=== PATIENT | male | born 1960 | race Caucasian/White ===

== ENCOUNTER 2016-07-06 08:48 | Outpatient (CLI) | payer BC | END 2016-07-06 08:49 | disposition home or self-care (01) | DX: E11.9 Type 2 diabetes mellitus without complications (principal); Z79.899 Other long term (current) drug therapy; E78.2 Mixed hyperlipidemia ==

== ENCOUNTER 2016-11-03 08:03 | Outpatient (CLI) | payer BC ==
[2016-11-03 12:05] LABS: GLUCOSE 213 mg/dL (70-100); LDL CHOLESTEROL,DIRECT 53 mg/dL
== END 2016-11-03 08:04 | disposition home or self-care (01) ==
LOC: LAB.F 08:03
PROVIDERS: ATTEND Internal Medicine
DX: E78.2 Mixed hyperlipidemia (principal); E11.9 Type 2 diabetes mellitus without complications; Z79.899 Other long term (current) drug therapy
CPT/HCPCS: 36415; 82947; 83036; 84450; 84460

== ENCOUNTER 2017-04-05 12:20 | Outpatient (CLI) | payer BC | END 2017-04-05 12:21 | disposition home or self-care (01) | LOC: LAB 12:20 | PROVIDERS: ATTEND Physician Assistant | DX: L40.0 Psoriasis vulgaris (principal); L57.8 Other skin changes due to chronic exposure to nonionizing radiation; L82.1 Other seborrheic keratosis; D18.01 Hemangioma of skin and subcutaneous tissue | CPT/HCPCS: 36415; 81599 ==

== ENCOUNTER 2017-07-06 07:51 | Outpatient (CLI) | payer BC ==
[2017-07-06 11:14] LABS: ALT ALANINE AMINOTRANSFERASE 33 IU/L (10-60); AST ASPARTATE AMINOTRANSFERASE 27 IU/L (10-42); LDL CHOLESTEROL,DIRECT 47 mg/dL
[2017-07-06 11:21] LABS: HB2 TOTAL 14.8 g/dL; HEMOGLOBIN A1C 1.08 g/dL; HEMOGLOBIN A1C % 8.8 % (4.6-6.2)
== END 2017-07-06 07:52 | disposition home or self-care (01) ==
LOC: LAB.F 07:51
PROVIDERS: ATTEND Internal Medicine
DX: E78.5 Hyperlipidemia, unspecified (principal); E11.9 Type 2 diabetes mellitus without complications
CPT/HCPCS: 36415; 83036; 83721; 84450; 84460

== ENCOUNTER 2017-10-24 14:24 | Outpatient (CLI) | payer BC ==
[2017-10-24 18:37] LABS: HB2 TOTAL 14.6 g/dL; HEMOGLOBIN A1C 0.75 g/dL; HEMOGLOBIN A1C % 6.9 % (4.6-6.2)
== END 2017-10-24 14:25 | disposition home or self-care (01) ==
LOC: LAB.F 14:24
PROVIDERS: ATTEND Internal Medicine
DX: E11.9 Type 2 diabetes mellitus without complications (principal)
CPT/HCPCS: 36415; 83036

== ENCOUNTER 2018-01-18 09:00 | Outpatient (CLI) | payer BC ==
[2018-01-18 17:33] LABS: BASOPHILS % (AUTO) 0.8 %; EOSINOPHILS # (AUTO) 0.2 10^3/uL (0.0-0.7); EOSINOPHILS % (AUTO) 3.5 %; HGB - HEMOGLOBIN 13.9 g/dL (14.0-18.0); LYMPHOCYTES # (AUTO) 1.6 10^3/uL (1.5-3.5); MEAN CORPUSCULAR HGB CONC 34.3 g/dL (32.0-36.0); MEAN CORPUSCULAR VOLUME 90.5 fL (80.0-94.0); MEAN PLATELET VOLUME 9.3 fL (7.4-11.4); MONOCYTES # (AUTO) 0.5 10^3/uL (0.0-1.0); NEUTROPHILS # (AUTO) 3.7 10^3/uL (1.5-6.6); NEUTROPHILS % (AUTO) 61.7 %; PLT - PLATELET COUNT 201 10^3/uL (130-450); RED BLOOD COUNT 4.47 10^6/uL (4.70-6.10); RED CELL DISTRIBUTION WIDTH 12.4 % (12.0-15.0)
[2018-01-18 18:03] LABS: HB2 TOTAL 14.9 g/dL; HEMOGLOBIN A1C 0.87 g/dL; HEMOGLOBIN A1C % 7.5 % (4.6-6.2)
[2018-01-18 18:10] LABS: ALBUMIN 4.6 g/dL (3.2-5.5); ALBUMIN/GLOBULIN RATIO 1.5 (1.0-2.2); ALKALINE PHOSPHATASE 37 IU/L (42-121); ALT ALANINE AMINOTRANSFERASE 32 IU/L (10-60); AST ASPARTATE AMINOTRANSFERASE 29 IU/L (10-42); BILIRUBIN,TOTAL 0.5 mg/dL (0.2-1.0); BUN - BLOOD UREA NITROGEN 26 mg/dL (6-20); CALCIUM 9.5 mg/dL (8.5-10.3); CARBON DIOXIDE - CO2 27 mmol/L (21-32); CHLORIDE 104 mmol/L (101-111); CHOL/HDL RATIO 3.3 (<5.0); CHOLESTEROL 101 mg/dL; CREATININE 1.2 mg/dL (0.6-1.2); GFR - MDRD 62 (>89); GLUCOSE 139 mg/dL (70-100); HDL CHOLESTEROL 31 mg/dL; LDL CHOLESTEROL,CALCULATED 39 mg/dL; LDL/HDL RATIO 1.3 (<3.6); SODIUM 136 mmol/L (135-145); TOTAL PROTEIN 7.6 g/dL (6.7-8.2); VLDL CHOLESTEROL 31 mg/dL
== END 2018-01-18 09:01 | disposition home or self-care (01) ==
LOC: LAB.F 09:00
PROVIDERS: ATTEND Internal Medicine
DX: Z00.00 Encounter for general adult medical examination without abnormal findings (principal); E78.5 Hyperlipidemia, unspecified; I10 Essential (primary) hypertension; E11.9 Type 2 diabetes mellitus without complications
CPT/HCPCS: 36415; 80053; 80061; 83036; 83721; 84153; 85025

== ENCOUNTER 2018-05-16 09:43 | Outpatient (CLI) | payer BC ==
[2018-05-16 10:09] LABS: BASOPHILS # (AUTO) 0.1 10^3/uL (0.0-0.1); BASOPHILS % (AUTO) 1.1 %; EOSINOPHILS # (AUTO) 0.2 10^3/uL (0.0-0.7); EOSINOPHILS % (AUTO) 2.9 %; HGB - HEMOGLOBIN 14.4 g/dL (14.0-18.0); LYMPHOCYTES # (AUTO) 1.6 10^3/uL (1.5-3.5); LYMPHOCYTES % (AUTO) 23.6 %; MEAN CORPUSCULAR HEMOGLOBIN 30.7 pg (27.0-31.0); MEAN CORPUSCULAR HGB CONC 34.5 g/dL (32.0-36.0); MEAN CORPUSCULAR VOLUME 88.9 fL (80.0-94.0); MEAN PLATELET VOLUME 8.9 fL (7.4-11.4); MONOCYTES # (AUTO) 0.6 10^3/uL (0.0-1.0); NEUTROPHILS # (AUTO) 4.5 10^3/uL (1.5-6.6); NEUTROPHILS % (AUTO) 64.4 %; PLT - PLATELET COUNT 207 10^3/uL (130-450); RED BLOOD COUNT 4.69 10^6/uL (4.70-6.10); RED CELL DISTRIBUTION WIDTH 12.5 % (12.0-15.0); WHITE BLOOD COUNT 6.9 x10^3/uL (4.8-10.8)
[2018-05-16 10:14] LABS: ALBUMIN 4.5 g/dL (3.2-5.5); ALBUMIN/GLOBULIN RATIO 1.5 (1.0-2.2); BILIRUBIN,TOTAL 0.5 mg/dL (0.2-1.0); CALCIUM 9.7 mg/dL (8.5-10.3); CREATININE 1.1 mg/dL (0.6-1.2); TOTAL PROTEIN 7.5 g/dL (6.7-8.2)
== END 2018-05-16 09:44 | disposition home or self-care (01) ==
LOC: LAB 09:43
PROVIDERS: ATTEND Physician Assistant
DX: L40.0 Psoriasis vulgaris (principal)
CPT/HCPCS: 36415; 80053; 81599; 85025

== ENCOUNTER 2018-05-27 08:38 | Outpatient (CLI) | payer BC ==
[2018-05-27 13:36] LABS: HB2 TOTAL 15.7 g/dL; HEMOGLOBIN A1C 1.09 g/dL; HEMOGLOBIN A1C % 8.5 % (4.6-6.2)
== END 2018-05-27 08:39 | disposition home or self-care (01) ==
LOC: LAB.F 08:38
PROVIDERS: ATTEND Internal Medicine
DX: E11.9 Type 2 diabetes mellitus without complications (principal)
CPT/HCPCS: 36415; 83036

== ENCOUNTER 2018-11-18 11:45 | Outpatient (CLI) | payer BC ==
--- NOTE | 2018-11-18 17:36 | MRI Report ---
Reason: BURSITIS OF LEFT SHOULDER Procedure Date: 11/18/2018 Accession Number: [id number] / [id number] Procedure: MRI - Shoulder LT W/O CPT Code: FULL RESULT: EXAM: LEFT SHOULDER MRI WITHOUT CONTRAST. EXAM DATE: 11/18/2018 12:30 PM. CLINICAL HISTORY: Bursitis of left shoulder. Shoulder pain. COMPARISON: None. TECHNIQUE: Multiplanar, multisequence T1-weighted and fluid-sensitive sequences of the shoulder without contrast. Other: None. FINDINGS: Acromioclavicular Region: The acromion is type II. AC joint is moderately osteoarthritic. The coracoacromial and coracoclavicular ligaments are intact. Some fluid seen in the bursa. Glenohumeral Region: No subluxation. No effusion or loose bodies. The articular cartilage is unremarkable. The glenohumeral ligaments and joint capsule are unremarkable. Bone Marrow: No fracture, marrow edema or bone lesions. Labrum: Small sublabral hole is present. No tears are noted. Musculature/Rotator Cuff: Subscapularis, supraspinatus and infraspinatus portions of the cuff are thickened and show some increased T2 signal. Also noted is a focal full-thickness tear of the distal supraspinatus attachment measuring about 1 cm. Series 701 image 4, series 501 image 14. No edema or fatty atrophy. Biceps Tendon: The long head of the biceps tendon and biceps dylon are intact. Other: The subcutaneous tissues are unremarkable. IMPRESSION: 1. AC joint is moderately osteoarthritic. Some fluid seen in the bursa is present. Type II unipartite undersurface osseous acromion. 2. Small cell labral hole. No tears are seen. 3. Significant tendinitis at the supraspinatus, infraspinatus and subscapularis portions of the cuff, there is a focal 1 cm rotator cuff tear distal supraspinatus as well. 4. Long head of biceps, biceps labral attachment have a normal appearance. RADIA
== END 2018-11-18 11:46 | disposition home or self-care (01) ==
LOC: DI 11:45
PROVIDERS: ATTEND Orthopaedic Surgery Sports Medicine
DX: M75.52 Bursitis of left shoulder (principal); M19.012 Primary osteoarthritis, left shoulder; M75.82 Other shoulder lesions, left shoulder

== ENCOUNTER 2018-11-29 08:07 | Outpatient (CLI) | payer BC ==
[2018-11-29 13:28] LABS: HB2 TOTAL 15.3 g/dL; HEMOGLOBIN A1C 1.01 g/dL; HEMOGLOBIN A1C % 8.2 % (4.6-6.2)
[2018-11-29 16:26] LABS: CALCIUM 9.9 mg/dL (8.5-10.3); CREATININE 1.2 mg/dL (0.6-1.2)
== END 2018-11-29 08:08 | disposition home or self-care (01) ==
LOC: LAB.S 08:07
PROVIDERS: ATTEND Family Medicine
DX: E11.9 Type 2 diabetes mellitus without complications (principal)
CPT/HCPCS: 36415; 80048; 83036

== ENCOUNTER 2019-01-02 11:32 | Outpatient (CLI) | payer BC ==
[2019-01-02 11:51] LABS: BASOPHILS % (AUTO) 0.4 %; EOSINOPHILS # (AUTO) 0.2 10^3/uL (0.0-0.7); HGB - HEMOGLOBIN 13.8 g/dL (14.0-18.0); LYMPHOCYTES # (AUTO) 1.9 10^3/uL (1.5-3.5); LYMPHOCYTES % (AUTO) 26.7 %; MEAN CORPUSCULAR HEMOGLOBIN 30.5 pg (27.0-31.0); MEAN CORPUSCULAR HGB CONC 33.8 g/dL (32.0-36.0); MEAN CORPUSCULAR VOLUME 90.3 fL (80.0-94.0); MEAN PLATELET VOLUME 10.5 fL (7.4-11.4); MONOCYTES # (AUTO) 0.6 10^3/uL (0.0-1.0); MONOCYTES % (AUTO) 8.8 %; NEUTROPHILS # (AUTO) 4.2 10^3/uL (1.5-6.6); NEUTROPHILS % (AUTO) 60.4 %; PLT - PLATELET COUNT 203 10^3/uL (130-450); RED BLOOD COUNT 4.52 10^6/uL (4.70-6.10); WHITE BLOOD COUNT 6.9 x10^3/uL (4.8-10.8)
[2019-01-02 12:04] LABS: ALBUMIN 4.5 g/dL (3.2-5.5); ALBUMIN/GLOBULIN RATIO 1.5 (1.0-2.2); BILIRUBIN,TOTAL 0.5 mg/dL (0.2-1.0); CALCIUM 9.8 mg/dL (8.5-10.3); CREATININE 1.1 mg/dL (0.6-1.2); TOTAL PROTEIN 7.6 g/dL (6.7-8.2)
== END 2019-01-02 11:33 | disposition home or self-care (01) ==
LOC: LAB 11:32
PROVIDERS: ATTEND Orthopaedic Surgery Sports Medicine
DX: Z01.818 Encounter for other preprocedural examination (principal); M75.42 Impingement syndrome of left shoulder; M75.102 Unspecified rotator cuff tear or rupture of left shoulder, not specified as traumatic
CPT/HCPCS: 36415; 80053; 85025

== ENCOUNTER 2019-03-07 09:46 | Outpatient (CLI) | payer BC ==
[2019-03-07 19:28] LABS: CALCIUM 10.2 mg/dL (8.5-10.3); CREATININE 1.4 mg/dL (0.6-1.2)
[2019-03-07 19:29] LABS: HEMOGLOBIN A1C 1.19 g/dL
== END 2019-03-07 09:47 | disposition home or self-care (01) ==
LOC: LAB.S 09:46
PROVIDERS: ATTEND Family Medicine
DX: E11.65 Type 2 diabetes mellitus with hyperglycemia (principal)
CPT/HCPCS: 36415; 80048; 83036

== ENCOUNTER 2019-05-02 14:13 | Outpatient (CLI) | payer BC | END 2019-05-02 14:14 | disposition home or self-care (01) | LOC: LAB 14:13 | PROVIDERS: ATTEND Physician Assistant Medical | DX: L40.0 Psoriasis vulgaris (principal) | CPT/HCPCS: 36415; 81599; 86317; 86480 ==

== ENCOUNTER 2019-05-16 09:50 | Outpatient (CLI) | payer BC ==
[2019-05-16 17:51] LABS: CALCIUM 9.5 mg/dL (8.5-10.3); CREATININE 1.1 mg/dL (0.6-1.2)
[2019-05-16 17:56] LABS: HB2 TOTAL 13.6 g/dL; HEMOGLOBIN A1C 0.75 g/dL; HEMOGLOBIN A1C % 7.2 % (4.6-6.2)
== END 2019-05-16 09:51 | disposition home or self-care (01) ==
LOC: LAB.S 09:50
PROVIDERS: ATTEND Family Medicine
DX: E11.65 Type 2 diabetes mellitus with hyperglycemia (principal)
CPT/HCPCS: 36415; 80048; 83036

== ENCOUNTER 2019-05-24 14:46 | Outpatient (CLI) | payer BC ==
[2019-05-24 15:17] LABS: BASOPHILS % (AUTO) 0.5 %; EOSINOPHILS # (AUTO) 0.3 10^3/uL (0.0-0.7); EOSINOPHILS % (AUTO) 3.1 %; HGB - HEMOGLOBIN 13.5 g/dL (14.0-18.0); LYMPHOCYTES # (AUTO) 2.1 10^3/uL (1.5-3.5); LYMPHOCYTES % (AUTO) 26.8 %; MEAN CORPUSCULAR HEMOGLOBIN 30.1 pg (27.0-31.0); MEAN CORPUSCULAR HGB CONC 33.6 g/dL (32.0-36.0); MEAN CORPUSCULAR VOLUME 89.7 fL (80.0-94.0); MEAN PLATELET VOLUME 10.7 fL (7.4-11.4); MONOCYTES # (AUTO) 0.6 10^3/uL (0.0-1.0); NEUTROPHILS # (AUTO) 4.9 10^3/uL (1.5-6.6); NEUTROPHILS % (AUTO) 61.1 %; PLT - PLATELET COUNT 213 10^3/uL (130-450); RED BLOOD COUNT 4.48 10^6/uL (4.70-6.10); RED CELL DISTRIBUTION WIDTH 12.2 % (12.0-15.0)
[2019-05-24 15:30] LABS: ALBUMIN 4.7 g/dL (3.2-5.5); ALBUMIN/GLOBULIN RATIO 1.6 (1.0-2.2); BILIRUBIN,TOTAL 0.8 mg/dL (0.2-1.0); CALCIUM 10.2 mg/dL (8.5-10.3); CREATININE 1.6 mg/dL (0.6-1.2); TOTAL PROTEIN 7.6 g/dL (6.7-8.2)
== END 2019-05-24 14:47 | disposition home or self-care (01) ==
LOC: LAB 14:46
PROVIDERS: ATTEND Orthopaedic Surgery Sports Medicine
DX: Z01.812 Encounter for preprocedural laboratory examination (principal); M75.42 Impingement syndrome of left shoulder; M75.52 Bursitis of left shoulder; M75.122 Complete rotator cuff tear or rupture of left shoulder, not specified as traumatic
CPT/HCPCS: 36415; 80053; 85025

== ENCOUNTER 2019-05-28 08:35 | Day surgery (SDC) | payer BC ==
[2019-05-28] MEDS ORDERED: PROPOFOL 200 MG/20 ML VIAL IVP ONE (08:36)
[2019-05-28] MEDS ORDERED: LIDOCAINE-MPF 2% 5 ML VIAL IM ONE (08:36)
[2019-05-28] MEDS ORDERED: fentaNYL 100 MCG/2 ML VIAL IVP ONE (08:36)
[2019-05-28] MEDS ORDERED: ROCURONIUM 50 MG/5 ML VIAL IVP ONE (08:36)
[2019-05-28] MEDS ORDERED: ACETAMINOPHEN 1,000 MG/100 ML 100 ML IV ONE (08:36)
[2019-05-28] MEDS ORDERED: MIDAZOLAM 2 MG/2 ML VIAL IVP ONE (08:36)
[2019-05-28] MEDS ORDERED: ONDANSETRON 4 MG/2 ML VIAL IVP ONE (08:36)
[2019-05-28] MEDS ORDERED: CEFAZOLIN SODIUM IN 0.9 % NACL 0 GM/0 ML BAG IV ONE (08:41)
[2019-05-28] MEDS ORDERED: LACTATED RINGERS 1,000 ML IV ONE (08:48)
--- NOTE | 2019-05-28 09:25 | ANESTHESIA ---
Pre-Anesthesia VS, & Labs - Diagnosis Left shoulder impingement and rotator cuff tear - Procedure Left shoulder arthroscopic subacromial decompression, rotator cuff repair Vital Signs: Temp Pulse Resp BP Pulse Ox 36.6 C 92 16 147/92 H 99 05/28/19 08:49 05/28/19 08:49 05/28/19 08:49 05/28/19 08:49 05/28/19 08:49 Height 5 ft 11 in Weight (kg) 112.6 kg - NPO >8 hours - Lab Results Current Lab Results: Laboratory Tests 05/28/19 09:07: POC Whole Bld Glucose 163 H Lab results reviewed: Yes Home Medications and Allergies Home Medications: Ambulatory Orders Insulin Lispro [Humalog Kwikpen U-100] 7 unit SUBQ TIDWM 05/23/19 Adalimumab [Humira] 40 mg SUBQ Q14D 07/19/16 Fenofibrate Nanocrystallized [Tricor] 145 mg PO DAILY 07/19/16 Metformin HCl 1,000 mg PO BIDWM 07/19/16 Multivitamin [Multivitamins] 1 each PO DAILY 07/19/16 lisinopriL [Lisinopril] 2.5 mg PO DAILY 07/19/16 Aspirin [Aspirin EC] 81 mg PO DAILY 01/02/19 C,E,Zinc,Copper 11/Rlpwi2m/Lut [Ocuvite Adult 50 Plus Softgel] 1 each PO DAILY 01/02/19 Cholecalciferol [Vitamin D3] 1,000 unit PO DAILY 01/02/19 Insulin Glargine,Hum.rec.anlog [Basaglar Kwikpen U-100] 50 unit SUBQ DAILY 01/02/19 Rosuvastatin Calcium 20 mg PO DAILY 01/02/19 Ubidecarenone [Co Q-10] 200 mg PO BID 01/02/19 Insulin Lispro [Humalog Kwikpen U-100] 7 unit SUBQ TIDWM 05/23/19 Allergies/Adverse Reactions: Allergies Allergy/AdvReac Type Severity Reaction Status Date / Time cephalexin monohydrate * Allergy Hives Verified 05/28/19 09:12 [From Keflex] Anes History & Medical History - Anesthetic History Anesthesia Complications: reports: No previous complications - Medical History Cardiovascular: reports: High cholesterol Pulmonary: reports: Sleep apnea (Resolved after UPP) Gastrointestinal: reports: None Urinary: reports: None Neuro: reports: None Musculoskeletal: reports: Osteoarthritis Endocrine/Autoimmune: reports: Type 2 diabetes, Other Skin: reports: Psoriasis (treated with humira) Smoking Status: Former smoker (quit 10 years ago) Psychosocial: reports: Cannabis (Every other day) - Surgical History General: Appendectomy, Other Eyes Ears Nose Throat (EENT): Tonsil/Adenoidectomy, Other (UPP) Exam General: Alert, Oriented x3, Cooperative, No acute distress Dental: WNL Mouth Openin Fingerbreadth Neck Mobility: Normal Mallampati classification: II Thyromental Distance: greater than 6 cm Respiratory: Lungs clear, Normal breath sounds, No respiratory distress, No accessory muscle use Cardiovascular: Regular rate, Normal S1, Normal S2, No murmurs Mental/Cognitive Status: Alert/Oriented X3, Normal for patient Plan Anesthesia Type: General, Interscalene Block (left) Regional Block: Per Surgeon's request for Post Op pain control Consent for Procedure(s) Verified and Reviewed: Yes Code Status: Attempt Resuscitation ASA classification: 2-Mild systemic disease Is this case an emergency?: No
[2019-05-28] MEDS ORDERED: EPINEPHrine 1 MG/ML AMP ONE (10:39)
[2019-05-28] MEDS ORDERED: BUPIVACAINE 0.5% PF 30 ML VIAL ONE (10:39)
[2019-05-28] MEDS ORDERED: CLINDAMYCIN 600 MG/50 ML 50 ML IV ONE (11:04)
[2019-05-28] MEDS ORDERED: CLINDAMYCIN 300 MG/2 ML VIAL IM SCH (11:10)
[2019-05-28] MEDS ORDERED: CLINDAMYCIN IV 900 MG/50 ML IV ONE (11:15)
[2019-05-28] MEDS ORDERED: BUPIVACAINE 0.5% PF 30 ML VIAL INFIL ONE (11:51)
--- NOTE | 2019-05-28 12:28 | ANESTHESIA PROCEDURE NOTE ---
Diagnosis: Left shoulder torn rotator cuff tear, impingement syndrome Procedure: Left interscalene block Consent for Procedure(s) Verified and Reviewed: Yes Height and Weight: Height 5 ft 11 in Weight (kg) 112.6 kg Vital Signs: Temp Pulse Resp BP Pulse Ox 36.6 C 92 16 147/92 H 99 05/28/19 08:49 05/28/19 08:49 05/28/19 08:49 05/28/19 08:49 05/28/19 08:49 Allergies cephalexin monohydrate * [From Keflex] Allergy (Verified 05/28/19 09:12) Hives Requesting Provider: Randy Location: Left shoulder ASA classification: 2-Mild systemic disease Is this case an emergency?: No Anes. Monitoring and Equipment: Non-invasive BP, Pulse oximetery Anes. Procedure Start Time: 10:35 Anes. Procedure Stop Time: 10:45 Procedure Notes: After timeout, patient's left shoulder was prepped with chlorohexadine. 2mg versed and 100mcg fentanyl given for patient comfort. The left brachial plexus was imaged and a 22G blunted stimiplex needle was directed to the sheath. A total of 30ml of 0.5% ropivicaine with 4mg decadron was injected around the nerve sheath with adequate spread noted. Patient tolerated the procedure well. Full evaluation is pending.
[2019-05-28] MEDS ORDERED: ONDANSETRON 4 MG/2 ML VIAL IVP PRN (13:14)
[2019-05-28] MEDS ORDERED: oxyCODONE 5 MG TABLET PO PRN (13:14)
--- NOTE | 2019-05-28 13:14 | IMMEDIATE POSTOPERATIVE NOTE ---
Immediate Postoperative Note - Procedure Note Procedure Date: 05/28/19 Pre-Op Diagnosis: Left rotator cuff tear, subacromial impingement Procedure: Left arthroscopic rotator cuff repair, arthroscopic subacromial decompression conversion to type I Acromion Post-Op Diagnosis: Same Primary Surgeon: Jarad Padilla MD Tour Manager: None Anesthesia Type: General ET tube, Local, Regional block Findings: Anterior supraspinatus full-thickness tear, long head biceps okay, minimal fraying subscapularis. Subacromial inflammation and fibrosis with downsloping anterior aspect of acromion. Post procedure there is type I acromion with good fixation of the rotator cuff to its near anatomic footprint with good integrity of the repair Complications: No complications Estimated Blood Loss (in cc): 25 Drains, Catheters, Devices: None Specimens and Cultures: None Plan of Care: Patient tolerated procedure well instrument and sponge counts correct patient was transferred to the recovery room in stable condition. He will follow standard postoperative left shoulder rotator cuff repair protocolPatient tolerated procedure well instrument and sponge counts correct patient was transferred to the recovery room in stable condition. He will follow standard postoperative left shoulder rotator cuff repair protocol
[2019-05-28] MEDS ORDERED: oxyCODONE 5 MG TABLET ONE (14:01)
[2019-05-28 14:45] VITALS: BP 138/64
--- NOTE | 2019-05-28 18:45 | OPERATIVE REPORT ---
DATE OF SERVICE: 05/28/2019 Physician: Leoncio Padilla MD SURGEON: Leoncio Padilla MD BUILDING MAINTENANCE MECHANIC: None. ANESTHESIA PROVIDER: Jeannie Chin CRNA. ANESTHESIA TYPE: General endotracheal as well as left side shoulder ultrasound- guided regional block, as well as 10 mL of 0.5% plain Marcaine. FLUIDS: 800 mL lactated Ringer's. ESTIMATED BLOOD LOSS: Less than 25 mL PREOPERATIVE ANTIBIOTICS: 900 mg clindamycin IV. COMPRESSION DEVICE: Bilateral calf SCD boots. ORTHOPEDIC IMPLANTS: Arthrex 5.5 Triple Play vented anchors x1 as well as #2 FiberWire. PREOPERATIVE DIAGNOSES: 1. Left shoulder rotator cuff tear. 2. Left shoulder subacromial impingement/bursitis. POSTOPERATIVE DIAGNOSES: 1. Left shoulder rotator cuff tear. 2. Left shoulder subacromial impingement/bursitis. PROCEDURE PERFORMED: 1. Left shoulder arthroscopic subacromial decompression conversion to type 1 acromion. 2. Left shoulder arthroscopic rotator cuff repair. HISTORY OF PRESENT ILLNESS AND INDICATIONS: Patient is a 58-year-old gentleman who sustained a left shoulder rotator cuff tear and is indicated for operative treatment. We previously discussed in the office. Risks, benefits, and alternatives of operative and nonoperative treatment. These are again highlighted in the preoperative care unit with patient and patient's present. Their questions are answered. Patient verbalized understanding of the above and verbalized wish to proceed with operative treatment. Informed consent is given. INTRAOPERATIVE FINDINGS: Patient noted to have full-thickness anterior tearing of the supraspinatus. Subscapularis has some minimal fraying noted. Biceps okay. Remaining rotator cuff okay. Supraspinatus that is torn is tendinotic at the edges. Downsloping anterior aspect of the acromion is noted with subacromial inflammation and fibrosis. Post-fixation of the rotator cuff, it is positioned at its near anatomic footprint with good integrity of the repair and the type 1 acromion is noted. PROCEDURE IN DETAIL: On 05/28/2019, patient is identified in the preoperative care unit. He identifies his left shoulder as the operative site. This is signed by the operating surgeon. He received preoperative weight-based antibiotics. He is brought to the operating room. General anesthesia is administered, then he is placed carefully on his right side down lateral decubitus position with appropriately placed axillary roll to avoid encumbrance of the axilla. Down leg is gel padded. SCD boots are in place. Genitalia are protected. Head, neck and extremities placed in anatomically comfortable and safe position to avoid peripheral nerve stretch and compression. At this time, left upper extremity is draped out and then pre-scrubbed with Hibiclens solution, followed by alcohol followed by prepping and draping with ChloraPrep solution. Ten pounds of traction are used initially. Ultimately, that goes to 15 pounds for a short portion of the case. At this time, surgical pause identifies left shoulder as the operative site. At this time, incision is made posteriorly. Scope is introduced into the glenohumeral joint. Diagnostic arthroscopy is carried out. Please see operative findings. Outside-in technique used to create anterior portal and shaver is brought through here to debride the undersurface of the rotator cuff tear. Biceps examined and subscapularis examined and noted to be without significant tearing. Attention is then directed subacromial space. The scope is redirected. Lateral incision is made. Shaver is brought to the lateral incision alternating with arthroscopic heating device with appropriate flow to avoid thermal injury, accomplishing a subacromial soft tissue decompression followed by using a bur, 6 mm oval to do subacromial decompression, converting it to a type 1 acromion, which is now level without anterior spurring. At this time, a PassPort cannula is placed laterally and then the rotator cuff footprint is debrided sharply and then shaved. The rotator cuff footprint is then debrided to freshly bleeding bone, though with integrity of the cortex left. At this point, a buoj-sc-cdto suture is indicated for the posterior portion of the tear where a FastPass Scorpion is used to place a [id number] suture to close down the size of the tear, particularly of the [id number] posterior aspect. This is followed by placement of an auxiliary anterolateral incision through which a punch is placed, followed by placement of the anchor into the footprint and then 2 simple sutures and a horizontal mattress suture are used to place through the edge of the rotator cuff. These were tied sequentially thereby reopposing the rotator cuff easily to the footprint. These are tied, suture limbs are cut. This is probed and noted to be stable. No loose ends or dog ear appearance. There is good integrity of the repair with range of motion of the shoulder. Subacromial space is copiously irrigated and hemostasis achieved. Instruments are removed. Local anesthesia is infused subcutaneously. Arthroscopic portals are closed using interrupted nylon suture. Skin is washed, dried, Xeroform dressing is applied. Dry sterile dressings applied. Micropore tape is applied. Patient is placed in abduction pillow sling. Patient tolerated the procedure well. Instrument and sponge counts are correct. Patient is transferred to recovery room in stable condition. He will follow standard postoperative left shoulder rotator cuff repair protocol. Patient's is contacted in the waiting room. Case is discussed. Arthroscopic photos reviewed. Perioperative medication plan and perioperative instructions discussed. Questions answered. Patient's in agreement and satisfaction with plan as outlined as patient and were preoperatively. TD: 05/28/2019 13:28 DOMINIC
== END 2019-05-28 08:36 | disposition home or self-care (01) ==
LOC: SDS 08:35
PROVIDERS: ATTEND Orthopaedic Surgery Sports Medicine
PROC: 0LM24ZZ Reattachment of Left Shoulder Tendon, Percutaneous Endoscopic Approach (ICD-10-PCS; principal; 2019-05-28 09:45)
PROC: 0RNK4ZZ Release Left Shoulder Joint, Percutaneous Endoscopic Approach (ICD-10-PCS; 2019-05-28 09:45)
DX: M75.122 Complete rotator cuff tear or rupture of left shoulder, not specified as traumatic (principal); M75.42 Impingement syndrome of left shoulder; E11.65 Type 2 diabetes mellitus with hyperglycemia; I10 Essential (primary) hypertension; E66.9 Obesity, unspecified; Z87.891 Personal history of nicotine dependence; Z79.4 Long term (current) use of insulin; Z79.899 Other long term (current) drug therapy; Z68.36 Body mass index [BMI] 36.0-36.9, adult; Z79.82 Long term (current) use of aspirin
CPT/HCPCS: 29826; 29827; A9270; C1713; J0131; J7120

== ENCOUNTER 2019-12-26 09:38 | Outpatient (CLI) | payer BC ==
[2019-12-26 14:58] LABS: BASOPHILS % (AUTO) 0.5 %; EOSINOPHILS # (AUTO) 0.2 10^3/uL (0.0-0.7); EOSINOPHILS % (AUTO) 3.8 %; HGB - HEMOGLOBIN 13.9 g/dL (14.0-18.0); LYMPHOCYTES # (AUTO) 1.5 10^3/uL (1.5-3.5); LYMPHOCYTES % (AUTO) 26.7 %; MEAN CORPUSCULAR HEMOGLOBIN 31.1 pg (27.0-31.0); MEAN CORPUSCULAR HGB CONC 33.3 g/dL (32.0-36.0); MEAN CORPUSCULAR VOLUME 93.3 fL (80.0-94.0); MONOCYTES # (AUTO) 0.5 10^3/uL (0.0-1.0); MONOCYTES % (AUTO) 8.6 %; NEUTROPHILS # (AUTO) 3.4 10^3/uL (1.5-6.6); NEUTROPHILS % (AUTO) 59.7 %; PLT - PLATELET COUNT 208 10^3/uL (130-450); RED BLOOD COUNT 4.47 10^6/uL (4.70-6.10); RED CELL DISTRIBUTION WIDTH 12.3 % (12.0-15.0); WHITE BLOOD COUNT 5.7 x10^3/uL (4.8-10.8)
[2019-12-26 15:31] LABS: ALBUMIN 4.5 g/dL (3.2-5.5); ALBUMIN/GLOBULIN RATIO 1.5 (1.0-2.2); ALKALINE PHOSPHATASE 45 IU/L (42-121); ALT ALANINE AMINOTRANSFERASE 28 IU/L (10-60); AST ASPARTATE AMINOTRANSFERASE 22 IU/L (10-42); BILIRUBIN,TOTAL 0.5 mg/dL (0.2-1.0); BUN - BLOOD UREA NITROGEN 30 mg/dL (6-20); CALCIUM 9.9 mg/dL (8.5-10.3); CARBON DIOXIDE - CO2 29 mmol/L (21-32); CHLORIDE 100 mmol/L (101-111); CHOL/HDL RATIO 3.7 (<5.0); CHOLESTEROL 132 mg/dL; CREATININE 1.3 mg/dL (0.6-1.2); GLUCOSE 207 mg/dL (70-100); HDL CHOLESTEROL 36 mg/dL; LDL CHOLESTEROL,CALCULATED 51 mg/dL; LDL/HDL RATIO 1.4 (<3.6); SODIUM 136 mmol/L (135-145); TOTAL PROTEIN 7.6 g/dL (6.7-8.2); VLDL CHOLESTEROL 45 mg/dL
[2019-12-26 18:14] LABS: HEMOGLOBIN A1c% 7.6 % (4.27-6.07)
== END 2019-12-26 09:39 | disposition home or self-care (01) ==
LOC: LAB.S 09:38
PROVIDERS: ATTEND Family Medicine
DX: E66.9 Obesity, unspecified (principal); Z68.35 Body mass index [BMI] 35.0-35.9, adult; E11.65 Type 2 diabetes mellitus with hyperglycemia; M75.122 Complete rotator cuff tear or rupture of left shoulder, not specified as traumatic; M19.90 Unspecified osteoarthritis, unspecified site; E78.5 Hyperlipidemia, unspecified; I10 Essential (primary) hypertension
CPT/HCPCS: 36415; 80053; 80061; 83036; 83721; 85025

== ENCOUNTER 2020-05-21 18:59 | Emergency (ER) | payer BC ==
[2020-05-21 19:09] VITALS: BP 160/81
--- NOTE | 2020-05-21 20:01 | ED Physician Documentation ---
PD HPI UPPER EXT INJURY - Stated complaint Stated Complaint: RT FINGER LAC - Chief complaint Chief Complaint: Laceration - History obtained from History obtained from: Patient - History of Present Illness Location: Right, Finger (index) Type of injury: Laceration (on fridge) Where injury occurred: Home Timing - onset: How many minutes ago (45) Timing - duration: Minutes (45) Timing - details: Abrupt onset Pain level max: 3 Pain level now: 2 Improved by: Rest Worsened by: Moving, Palpating Associated symptoms: No: Weakness, Numbness, Tingling, Swelling Recently seen: Not recently seen Review of Systems Constitutional: denies: Fever, Chills GI: denies: Vomiting, Diarrhea Skin: denies: Rash Musculoskeletal: denies: Neck pain, Back pain Neurologic: denies: Headache PD PAST MEDICAL HISTORY - Past Medical History Past Medical History: Yes Cardiovascular: High cholesterol Respiratory: Sleep apnea Neuro: None Endocrine/Autoimmune: Type 2 diabetes, Other GI: None : None HEENT: Chronic vision loss, Other Psych: None Musculoskeletal: Osteoarthritis Derm: Psoriasis - Past Surgical History General: Appendectomy, Other HEENT: Tonsil/Adenoidectomy, Other - Present Medications Home Medications: Ambulatory Orders Medication Instructions Recorded Confirmed Adalimumab [Humira] 40 mg SUBQ Q14D 07/19/16 05/21/20 Fenofibrate Nanocrystallized 145 mg PO DAILY 07/19/16 05/21/20 [Tricor] Metformin HCl 1,000 mg PO BIDWM 07/19/16 05/21/20 Multivitamin [Multivitamins] 1 each PO DAILY 07/19/16 05/21/20 lisinopriL [Lisinopril] 2.5 mg PO DAILY 07/19/16 05/21/20 Aspirin [Aspirin EC] 81 mg PO DAILY 01/02/19 05/21/20 C,E,Zinc,Copper 11/Nnwot9l/Lut 1 each PO DAILY 01/02/19 05/21/20 [Ocuvite Adult 50 Plus Softgel] Cholecalciferol [Vitamin D3] 1,000 unit PO DAILY 01/02/19 05/21/20 Insulin Glargine,Hum.rec.anlog 50 unit SUBQ DAILY 01/02/19 05/21/20 [Basaglar Kwikpen U-100] Rosuvastatin Calcium 20 mg PO DAILY 01/02/19 05/21/20 Ubidecarenone [Co Q-10] 200 mg PO BID 01/02/19 05/21/20 Insulin Lispro [Humalog Kwikpen 7 unit SUBQ TIDWM 05/23/19 05/21/20 U-100] - Allergies Allergies/Adverse Reactions: Allergies Allergy/AdvReac Type Severity Reaction Status Date / Time cephalexin monohydrate * Allergy Hives Verified 05/21/20 19:09 [From [employer]] - Social History Does the pt smoke?: No Smoking Status: Former smoker - Immunizations Immunizations are current?: No Immunizations: TDAP >10years/unknown PD ED PE NORMAL - Vitals Vital signs reviewed: Yes - General General: Alert and oriented X 3, No acute distress - HEENT HEENT: Moist mucous membranes - Neck Neck: Supple, no meningeal sign - Derm Derm: Warm and dry - Extremities Extremities: Other (R index finger - small flap laceration to the distal tip of the finger. no bleeding, superficial. ) - Neuro Neuro: Alert and oriented X 3 Results - Vitals Vitals: Vital Signs - 24 hr 05/21/20 19:04 Temperature 36.8 C Heart Rate 102 H Respiratory 17 Rate Blood Pressure 160/81 H O2 Saturation 98 Oxygen O2 Source Room air Procedures - Laceration (location) R index finger Length in cm: 0.2 Wound type: Curved, Flap, Superficial Neurovascular status: Sensory intact, Motor intact, Vascular intact Wound Preparation: Irrigated copiously NS Skin layer closure: Dermabond Other: Patient tolerated well, No complications, Neurovascular intact Complexity: Simple PD MEDICAL DECISION MAKING - ED course Complexity details: considered differential, d/w patient ED course: 59-year-old female with a right index finger laceration. No suturable laceration. Dermabond applied with a finger splint. Tetanus up-to-date. Warnings of infection and instructions on wound care given at bedside. Also counseled on how to minimize scarring. Patient counseled regarding signs and symptoms for which I believe and urgent re-evaluation would be necessary. Patient with good understanding of and agreement to plan and is comfortable going home at this time This document was made in part using voice recognition software. While efforts are made to proofread this document, sound alike and grammatical errors may occur. Departure - Departure Disposition: Home, Self Care Clinical Impression: Finger laceration Qualifiers: Encounter type: initial encounter Finger: index finger Damage to nail status: without damage Foreign body presence: without foreign body Laterality: right Qualified Code(s): S61.210A - Laceration without foreign body of right index finger without damage to nail, initial encounter Condition: Good Instructions: ED Laceration Ext Skin Glue Follow-Up: Vikas Ramos MD [Primary Care Provider] - As Needed Comments: Follow-up with your doctor for further care. Return if you worsen. The glue will dissolve on its own within about 5 to 7 days. You can wear the finger splint for the next 3 to 4 days to help protect the finger. Discharge Date/Time: 05/21/20 20:10
== END 2020-05-21 20:10 | disposition home or self-care (01) ==
LOC: ED 18:59
DX: S61.210A Laceration without foreign body of right index finger without damage to nail, initial encounter (principal); W26.8XXA Contact with other sharp object(s), not elsewhere classified, initial encounter; Y93.E9 Activity, other interior property and clothing maintenance; Y92.009 Unspecified place in unspecified non-institutional (private) residence as the place of occurrence of the external cause; E11.9 Type 2 diabetes mellitus without complications; Z79.4 Long term (current) use of insulin; Z87.891 Personal history of nicotine dependence
CPT/HCPCS: 12001; 99281; 99282

== ENCOUNTER 2020-12-01 08:56 | Outpatient (CLI) | payer BC ==
[2020-12-01 21:11] LABS: ESTIMATED AVERAGE GLUCOSE 151 mg/dL (70-100); HEMOGLOBIN A1c% 6.9 % (4.27-6.07)
== END 2020-12-01 08:57 | disposition home or self-care (01) ==
LOC: LAB.S 08:56
PROVIDERS: ATTEND Nurse Practitioner Family
DX: E11.8 Type 2 diabetes mellitus with unspecified complications (principal)
CPT/HCPCS: 36415; 83036

== ENCOUNTER 2021-05-19 07:13 | Outpatient (CLI) | payer BC ==
[2021-05-19 15:00] LABS: BASOPHILS % (AUTO) 0.4 %; EOSINOPHILS # (AUTO) 0.2 10^3/uL (0.0-0.7); EOSINOPHILS % (AUTO) 4.2 %; HCT - HEMATOCRIT 41.2 % (42.0-52.0); HGB - HEMOGLOBIN 14.1 g/dL (14.0-18.0); LYMPHOCYTES # (AUTO) 1.8 10^3/uL (1.5-3.5); LYMPHOCYTES % (AUTO) 32.5 %; MEAN CORPUSCULAR HGB CONC 34.2 g/dL (32.0-36.0); MEAN CORPUSCULAR VOLUME 93.4 fL (80.0-94.0); MEAN PLATELET VOLUME 10.9 fL (7.4-11.4); MONOCYTES # (AUTO) 0.5 10^3/uL (0.0-1.0); MONOCYTES % (AUTO) 9.4 %; NEUTROPHILS % (AUTO) 53.3 %; PLT - PLATELET COUNT 233 10^3/uL (130-450); RED BLOOD COUNT 4.41 10^6/uL (4.70-6.10); RED CELL DISTRIBUTION WIDTH 11.9 % (12.0-15.0); WHITE BLOOD COUNT 5.5 x10^3/uL (4.8-10.8)
[2021-05-19 15:45] LABS: ALBUMIN 4.7 g/dL (3.2-5.5); ALKALINE PHOSPHATASE 39 IU/L (42-121); ALT ALANINE AMINOTRANSFERASE 31 IU/L (10-60); AST ASPARTATE AMINOTRANSFERASE 35 IU/L (10-42); BILIRUBIN,DIRECT 0.1 mg/dL (0.1-0.5); BILIRUBIN,TOTAL 0.8 mg/dL (0.2-1.0); BUN - BLOOD UREA NITROGEN 29 mg/dL (6-20); CALCIUM 9.9 mg/dL (8.5-10.3); CARBON DIOXIDE - CO2 28 mmol/L (21-32); CHLORIDE 100 mmol/L (101-111); CHOL/HDL RATIO 3.3 (<5.0); CHOLESTEROL 108 mg/dL; CREATININE 1.4 mg/dL (0.6-1.2); GFR - MDRD 52 (>89); GLUCOSE 210 mg/dL (70-100); HDL CHOLESTEROL 33 mg/dL; LDL CHOLESTEROL,CALCULATED 54 mg/dL; LDL CHOLESTEROL,DIRECT 50 mg/dL; LDL/HDL RATIO 1.6 (<3.6); POTASSIUM 4.7 mmol/L (3.5-5.0); SODIUM 136 mmol/L (135-145); TOTAL PROTEIN 7.5 g/dL (6.7-8.2); TRIGLYCERIDES 106 mg/dL; VLDL CHOLESTEROL 21 mg/dL
[2021-05-20 11:32] LABS: HEPATITIS B SURFACE ANTIGEN NON-REACTIVE (NON-REACTIVE)
[2021-05-20 11:35] LABS: HEPATITIS C ANTIBODY NON-REACTIVE (NON-REACTIVE)
[2021-05-21 09:56] LABS: NIL 0.02 IU/mL
== END 2021-05-19 07:14 | disposition home or self-care (01) ==
LOC: LAB.S 07:13
PROVIDERS: ATTEND Physician Assistant
DX: L40.0 Psoriasis vulgaris (principal); Z08 Encounter for follow-up examination after completed treatment for malignant neoplasm; Z85.828 Personal history of other malignant neoplasm of skin; L57.8 Other skin changes due to chronic exposure to nonionizing radiation
CPT/HCPCS: 36415; 80048; 80061; 80076; 83721; 85025; 86317; 86480; 86704; 86803; 87340

== ENCOUNTER 2021-09-06 07:01 | Outpatient (CLI) | payer BC ==
[2021-09-06 14:27] LABS: BASOPHILS % (AUTO) 0.5 %; EOSINOPHILS # (AUTO) 0.2 10^3/uL (0.0-0.7); EOSINOPHILS % (AUTO) 3.1 %; HCT - HEMATOCRIT 40.2 % (42.0-52.0); HGB - HEMOGLOBIN 13.2 g/dL (14.0-18.0); LYMPHOCYTES # (AUTO) 1.7 10^3/uL (1.5-3.5); LYMPHOCYTES % (AUTO) 27.8 %; MEAN CORPUSCULAR HEMOGLOBIN 30.6 pg (27.0-31.0); MEAN CORPUSCULAR HGB CONC 32.8 g/dL (32.0-36.0); MEAN CORPUSCULAR VOLUME 93.3 fL (80.0-94.0); MONOCYTES # (AUTO) 0.4 10^3/uL (0.0-1.0); MONOCYTES % (AUTO) 7.2 %; NEUTROPHILS # (AUTO) 3.7 10^3/uL (1.5-6.6); NEUTROPHILS % (AUTO) 61.1 %; PLT - PLATELET COUNT 233 10^3/uL (130-450); RED BLOOD COUNT 4.31 10^6/uL (4.70-6.10); RED CELL DISTRIBUTION WIDTH 12.1 % (12.0-15.0); WHITE BLOOD COUNT 6.1 x10^3/uL (4.8-10.8)
[2021-09-06 14:51] LABS: ALBUMIN 4.6 g/dL (3.2-5.5); ALBUMIN/GLOBULIN RATIO 1.7 (1.0-2.2); ALKALINE PHOSPHATASE 35 IU/L (42-121); ALT ALANINE AMINOTRANSFERASE 21 IU/L (10-60); AST ASPARTATE AMINOTRANSFERASE 20 IU/L (10-42); BILIRUBIN,TOTAL 0.4 mg/dL (0.2-1.0); BUN - BLOOD UREA NITROGEN 21 mg/dL (6-20); CARBON DIOXIDE - CO2 27 mmol/L (21-32); CHLORIDE 104 mmol/L (101-111); CHOL/HDL RATIO 2.8 (<5.0); CHOLESTEROL 119 mg/dL; CREATININE 1.2 mg/dL (0.6-1.2); GFR - MDRD 62 (>89); GLUCOSE 143 mg/dL (70-100); HDL CHOLESTEROL 42 mg/dL; LDL CHOLESTEROL,CALCULATED 60 mg/dL; LDL/HDL RATIO 1.4 (<3.6); POTASSIUM 4.8 mmol/L (3.5-5.0); SODIUM 139 mmol/L (135-145); TOTAL PROTEIN 7.3 g/dL (6.7-8.2); TRIGLYCERIDES 84 mg/dL; VLDL CHOLESTEROL 17 mg/dL
[2021-09-06 14:52] LABS: CREATININE,URINE 82.6 mg/dL
[2021-09-06 15:40] LABS: MICROALBUM/CREATININE RATIO,UR 36.3 ug/mg (<30.0)
[2021-09-06 20:23] LABS: ESTIMATED AVERAGE GLUCOSE 160 mg/dL (70-100); HEMOGLOBIN A1c% 7.2 % (4.27-6.07)
== END 2021-09-06 07:02 | disposition home or self-care (01) ==
LOC: LAB.S 07:01
PROVIDERS: ATTEND Nurse Practitioner Family
DX: E78.2 Mixed hyperlipidemia (principal); I10 Essential (primary) hypertension; E11.9 Type 2 diabetes mellitus without complications
CPT/HCPCS: 36415; 80053; 80061; 82043; 82570; 83036; 83721; 84443; 85025

== ENCOUNTER 2022-05-23 07:00 | Outpatient (CLI) | payer BC ==
[2022-05-23 14:17] LABS: BASOPHILS % (AUTO) 0.5 %; EOSINOPHILS # (AUTO) 0.2 10^3/uL (0.0-0.7); EOSINOPHILS % (AUTO) 2.4 %; HCT - HEMATOCRIT 41.6 % (42.0-52.0); HGB - HEMOGLOBIN 13.3 g/dL (14.0-18.0); LYMPHOCYTES # (AUTO) 1.9 10^3/uL (1.5-3.5); LYMPHOCYTES % (AUTO) 24.6 %; MEAN CORPUSCULAR HEMOGLOBIN 29.8 pg (27.0-31.0); MEAN CORPUSCULAR VOLUME 93.3 fL (80.0-94.0); MEAN PLATELET VOLUME 11.2 fL (7.4-11.4); MONOCYTES # (AUTO) 0.7 10^3/uL (0.0-1.0); MONOCYTES % (AUTO) 9.2 %; NEUTROPHILS # (AUTO) 4.9 10^3/uL (1.5-6.6); NEUTROPHILS % (AUTO) 62.7 %; PLT - PLATELET COUNT 244 10^3/uL (130-450); RED BLOOD COUNT 4.46 10^6/uL (4.70-6.10); RED CELL DISTRIBUTION WIDTH 12.1 % (12.0-15.0); WHITE BLOOD COUNT 7.8 x10^3/uL (4.8-10.8)
[2022-05-23 14:48] LABS: ALBUMIN 4.5 g/dL (3.2-5.5); ALBUMIN/GLOBULIN RATIO 1.3 (1.0-2.2); BILIRUBIN,TOTAL 0.6 mg/dL (0.2-1.0); CALCIUM 10.3 mg/dL (8.5-10.3); CREATININE 1.4 mg/dL (0.6-1.2); POTASSIUM 5.2 mmol/L (3.5-5.0); TOTAL PROTEIN 7.9 g/dL (6.7-8.2)
== END 2022-05-23 07:01 | disposition home or self-care (01) ==
LOC: LAB.S 07:00
PROVIDERS: ATTEND Physician Assistant
DX: L40.0 Psoriasis vulgaris (principal)
CPT/HCPCS: 36415; 80053; 81599; 85025; 86480